=== PATIENT | female | born 1955 | race Asian ===

== ENCOUNTER 2020-12-23 14:08 | Emergency (ER) | payer OTHER ==
[2020-12-23] MEDS ORDERED: MELO-107 PO (14:13)
[2020-12-23] MEDS ORDERED: ATOR10TA84 PO (14:13)
== END 2020-12-23 15:48 | disposition home or self-care (01) ==
LOC: EMS 14:14
DX: S42.252A Displaced fracture of greater tuberosity of left humerus, initial encounter for closed fracture (principal); E78.00 Pure hypercholesterolemia, unspecified; W19.XXXA Unspecified fall, initial encounter; Y93.89 Activity, other specified; Y92.89 Other specified places as the place of occurrence of the external cause; Y99.8 Other external cause status
CPT/HCPCS: 29105; 99284